=== PATIENT | male | born 1980 | race Caucasian/White ===

== ENCOUNTER → 2018-04-20 | Outpatient (CLI) | payer OTHER ==
--- NOTE | 2018-04-20 11:31 | RADIOLOGY REPORT (SQ) ---
EXAM DESCRIPTION: [facility] CHEST XRAY COMPLETED DATE/TIME: 04/20/2018 10:09 am REASON FOR STUDY: NONSPECIFIC REACTION TO SKIN TEST W/O ACTIVE TUBERCULOSIS COMPARISON: None. EXAM PARAMETERS: NUMBER OF VIEWS: two views TECHNIQUE: Digital Frontal and Lateral radiographic views of the chest acquired. RADIATION DOSE: NA LIMITATIONS: none FINDINGS: LUNGS AND PLEURA: Mild hyperinflation and hyperlucency of the upper lobes. No focal acute infiltrates or pleural effusion. No pneumothorax. No cavitary nodules MEDIASTINUM AND HILAR STRUCTURES: No masses or contour abnormalities. HEART AND VASCULAR STRUCTURES: Heart normal size. No evidence for failure. BONES: No acute findings. HARDWARE: None in the chest. OTHER: No other significant finding. IMPRESSION: NO SIGNIFICANT RADIOGRAPHIC FINDING IN THE CHEST. TECHNICAL DOCUMENTATION: JOB ID: [id number] [employer]- All Rights Reserved Reading location - IP/workstation name: [email or web address]
== END ==
LOC: HH 10:01
DX: Z53.9 Procedure and treatment not carried out, unspecified reason (principal)

== ENCOUNTER → 2019-10-19 | Outpatient (CLI) | payer OTHER ==
[2019-10-19 09:07] LABS: SPERM CONCENTRATION < 0.1 X10^6/mL (>12.0)
[2019-10-19 09:09] LABS: SPERM PROGRESSION 1
== END ==
LOC: OD 07:38
PROVIDERS: ATTEND Obstetrics & Gynecology Gynecology
DX: N46.11 Organic oligospermia (principal)
CPT/HCPCS: 89321